=== PATIENT | male | born 1980 | race Caucasian/White ===

== ENCOUNTER 2016-11-21 19:17 | Emergency (ER) | payer MEDICARE, OTHER ==
[~2016-11-21 19:17] MED LIST: AMOXICILLIN500 M1 PO; CETIRIZINE PO; CLEOCIN150 M2 PO; IBUPROFEN800 MG PO; KEFLEX500 M1 PO; NO MEDICATIONS; PEN-VEE K PO; PSEUDOEPHEDRINE PO; ROBITUSSIN A-C10 ML PO; TRAMADOL HCL50 M1 PO; ULTRAM PO; VOLTAREN75 MG PO
== END 2016-11-21 20:30 | disposition home or self-care (01) ==
LOC: SED 19:17
DX: K08.89 Other specified disorders of teeth and supporting structures (principal)
CPT/HCPCS: 99282